=== PATIENT | male | born 1990 | race Two or more races ===

== ENCOUNTER 2022-04-03 10:28 | Emergency (ER) | payer SELFPAY ==
[2022-04-03 10:37] VITALS: BP 160/120; PULSE 100
--- NOTE | 2022-04-03 10:47 | ED.PSYCH ---
HPI - Psych General Chief Complaint: General Medical <DWAYNE Zuñiga - Last Filed: 04/03/22 18:03> Stated Complaint: ETOH <DWAYNE Zuñiga - Last Filed: 04/03/22 18:03> Time Seen by Provider: 04/03/22 10:43 <DWAYNE Zuñiga Last Filed: 04/03/22 18:03> Source: patient and EMS <DWAYNE Zuñiga - Last Filed: 04/03/22 18:03> Mode of arrival: EMS <DWAYNE Zuñiga - Last Filed: 04/03/22 18:03> Limitations: no limitations <DWAYNE Zuñiga Last Filed: 04/03/22 18:03> History of Present Illness HPI Narrative: 31-year-old male with a history of substance abuse and alcohol abuse presents to the ER for a retic an aunt behavior. Per EMS patient was found in police custody after he was running a radically throughout the streets in traffic. He was soaking wet. Patient admits to using crystal meth today and drinking a large amount of vodka. She denies any intent of self-harm. He states [place] and he was running around trying to dry his clothes off. He states he uses crystal meth and drinks alcohol every day. He denies any history of withdrawal. <DWAYNE Zuñiga - Last Filed: 04/03/22 18:03> MD complaint: substance abuse and alcohol abuse <DWAYNE Zuñiga - Last Filed: 04/03/22 18:03> Onset (ago): unknown <DWAYNE Zuñiga - Last Filed: 04/03/22 18:03> Duration: constant <DWAYNE Zuñiga Last Filed: 04/03/22 18:03> History of same: Yes <DWAYNE Zuñiga - Last Filed: 04/03/22 18:03> Relieving factors: none <DWAYNE Zuñiga Last Filed: 04/03/22 18:03> Exacerbating factors: none <DWAYNE Zuñiga Last Filed: 04/03/22 18:03> Context: recent alcohol abuse and recent drug abuse <DWAYNE Zuñiga - Last Filed: 04/03/22 18:03> Associated psychiatric symptoms: none <DWAYNE Zuñiga - Last Filed: 04/03/22 18:03> Associated symptoms: denies other symptoms <DWAYNE Zuñiga - Last Filed: 04/03/22 18:03> Treatments prior to arrival: none <DWAYNE Zuñiga - Last Filed: 04/03/22 18:03> Related Data Allergies/Adverse Reactions: Allergies Allergy/AdvReac Type Severity Reaction Status Date / Time Unable to Assess Allergy Unverified 04/03/22 10:44 <DWAYNE Zuñiga - Last Filed: 04/03/22 18:03> Review of Systems Review of Systems: Constitutional: No Fever, No Chills ENT/Mouth: No sore throat, No Rhinorrhea Cardiovascular: No Chest Pain, No SOB Respiratory: No Cough, No Sputum Gastrointestinal: No Nausea, No Vomiting, No Diarrhea, No abdominal Pain Genitourinary: No Dysuria, No Urinary Frequency, No Hematuria Musculoskeletal: No joint pain, No Myalgias Skin: + Skin Lesions (scrapes on RUE), No rash Neuro: No Weakness, No Numbness, No Dizziness, No Headache Psych: No Anxiety/Panic, No Depression, No SI, No HI, No AH, No VH Heme/Lymph: No Bruising, No Lymphadenopathy <DWAYNE Zuñiga - Last Filed: 04/03/22 18:03> Physical Exam Vital Signs: Vital Signs: Last Vital Signs Temp 98 F 04/03/22 10:50 Pulse 100 04/03/22 10:50 Resp 20 04/03/22 14:57 BP 124/66 04/03/22 10:50 Pulse Ox 98 04/03/22 10:50 BMI result Body Mass Index 26.5 <DWAYNE Zuñiga - Last Filed: 04/03/22 18:03> Vital Signs: Last Vital Signs Temp 98 F 04/03/22 10:50 Pulse 100 04/03/22 10:50 Resp 20 04/03/22 14:57 BP 124/66 04/03/22 10:50 Pulse Ox 98 04/03/22 10:50 BMI result Body Mass Index 26.5 <DWAYNE Moncada - Last Filed: 04/03/22 18:15> Appearance: Alert male sitting up on the stretcher, restless and itching his upper torso.. Oriented X3. Slightly lethargic, appears to be under the influence Eyes: Pupils equal, round and reactive to light. ENT: Pharynx normal. Neck: Normal inspection. Neck supple. CVS: Normal heart rate and rhythm. Pulses normal. Respiratory: No respiratory distress. Breath sounds normal. Abdomen: Soft and nontender. +BS x4 Skin: Skin warm and dry. Normal skin color. Normal skin turgor. superficial excoriations on the anterior chest wall Extremities: No lower extremity edema. Neuro/psych: Oriented X 3. Slightly slurred speech, conversant. moves all extremities. CN II-XII intact, nonfocal. abnormal though process. not suicidal. <DWAYNE Zuñiga - Last Filed: 04/03/22 18:03> Course Course Course Narrative: 31-year-old male comes in to the ER for evaluation of erratic behavior intoxication. He admits using crystal meth and alcohol today. He was running around in traffic. He denies any suicidal ideation or self-harm behaviors. He he is lethargic but able to converse. He appears to be under the influence He is asking for food and drinks. Will check basic lab workup, U tox, alcohol level. Will review assess once he is clinically sober. <DWAYNE Zuñiga - Last Filed: 04/03/22 18:03> Reevaluation(s) Reevaluation #1: Lab workup unremarkable. Alcohol level is negative. U tox is still pending. He is sleeping but easily arousable to voice. Does not maintain wakefulness. Needs more time to be more propria and rehab assess. Patient placed in physician observation started at 1:34 pm. <DWAYNE Zuñiga - Last Filed: 04/03/22 18:03> Reevaluation #2: - patient now awake, alert and oriented x3. Able to ambulate around the ER into the bathroom without any difficulties or assistive devices or any assistance. He just finished eating a sandwich, yogurt, cheese, drink some mateo lynda and we gave him dry clothes. He denies any SI/HI / auditory visualizations thoughts of self-injury. Reports that he is not interested in detox. Therefore at this time patient is clinically sober and can be discharged with instructions return if any new or worsening symptoms follow up with primary care provider. Patient understands agrees with this plan. <DWAYNE Moncada - Last Filed: 04/03/22 18:15> Time: 18:14 <DWAYNE Moncada - Last Filed: 04/03/22 18:15> MDM - Psych Lab Data Result diagrams: : 04/03/22 12:40 04/03/22 12:40 <DWAYNE Zuñiga - Last Filed: 04/03/22 18:03> Labs: Lab Results 04/03/22 04/03/22 Range/Units 12:40 12:40 WBC 9.3 (4.8-10.8) X10*3/uL RBC 4.80 (4.60-5.80) X10*6/uL Hgb 12.8 L (14.0-18.0) g/dl Hct 39.3 L (42.0-52.0) % MCV 81.9 (80.0-98.0) fL MCH 26.7 L (27.0-33.0) pg MCHC 32.6 (31.0-36.0) g/dl RDW 13.8 (11.0-16.0) % Plt Count 321 (160-400) X10*3/uL MPV 9.8 (9.4-12.4) fL Immature Gran % (Auto) 0.1 (0.0-0.4) % Neut % (Auto) 55.0 (45-73) % Lymph % (Auto) 31.9 (20-40) % [place] % (Auto) 9.2 (2-11) % Eos % (Auto) 3.0 (0-4) % Baso % (Auto) 0.8 (0-2) % Lymph # (Auto) 3.0 (1.2-4.9) X10*3/uL [place] # (Auto) 0.9 (0.1-1.2) X10*3/uL Eos # (Auto) 0.3 (0.0-0.4) X10*3/uL Baso # (Auto) 0.1 (0.0-0.2) X10*3/uL Abs Immat Gran (auto) 0.01 (0.00-0.03) X10*3/uL Absolute Neuts (auto) 5.1 (2.0-8.3) x10*3/uL Absolute Nucleated RBC 0.000 (0.0-0.012) X10*3/uL Nucleated RBC % (auto) 0.0 (0.0-0.2) /100WBC Sodium 140 (135-145) mmol/L Potassium 3.7 (3.3-5.1) mmol/L Chloride 105 (96-108) mmol/L Carbon Dioxide 29 (22-29) mmol/L Anion Gap 10 L (12-20) BUN 11 (9-16) mg/dL Creatinine 0.94 (0.5-1.4) mg/dL Estim Creat Clear Calc 119.7 Estimated GFR > 60 Random Glucose 91 (60-115) mg/dL Calcium 9.2 (8.4-10.2) mg/dL Magnesium 2.2 (1.6-2.6) mg/dL Total Bilirubin 0.5 (0.0-1.0) mg/dL Direct Bilirubin 0.2 (0.0-0.5) mg/dL AST 33 (5-37) U/L ALT 28 (0-40) U/L Alkaline Phosphatase 55 (39-117) U/L Total Protein 6.9 (6.5-8.0) g/dL Albumin 4.1 (3.5-5.0) g/dL Ethyl Alcohol < 10 mg/dL <DWAYNE Zuñiga - Last Filed: 04/03/22 18:03> Lab Results 04/03/22 04/03/22 Range/Units 12:40 12:40 WBC 9.3 (4.8-10.8) X10*3/uL RBC 4.80 (4.60-5.80) X10*6/uL Hgb 12.8 L (14.0-18.0) g/dl Hct 39.3 L (42.0-52.0) % MCV 81.9 (80.0-98.0) fL MCH 26.7 L (27.0-33.0) pg MCHC 32.6 (31.0-36.0) g/dl RDW 13.8 (11.0-16.0) % Plt Count 321 (160-400) X10*3/uL MPV 9.8 (9.4-12.4) fL Immature Gran % (Auto) 0.1 (0.0-0.4) % Neut % (Auto) 55.0 (45-73) % Lymph % (Auto) 31.9 (20-40) % [place] % (Auto) 9.2 (2-11) % Eos % (Auto) 3.0 (0-4) % Baso % (Auto) 0.8 (0-2) % Lymph # (Auto) 3.0 (1.2-4.9) X10*3/uL [place] # (Auto) 0.9 (0.1-1.2) X10*3/uL Eos # (Auto) 0.3 (0.0-0.4) X10*3/uL Baso # (Auto) 0.1 (0.0-0.2) X10*3/uL Abs Immat Gran (auto) 0.01 (0.00-0.03) X10*3/uL Absolute Neuts (auto) 5.1 (2.0-8.3) x10*3/uL Absolute Nucleated RBC 0.000 (0.0-0.012) X10*3/uL Nucleated RBC % (auto) 0.0 (0.0-0.2) /100WBC Sodium 140 (135-145) mmol/L Potassium 3.7 (3.3-5.1) mmol/L Chloride 105 (96-108) mmol/L Carbon Dioxide 29 (22-29) mmol/L Anion Gap 10 L (12-20) BUN 11 (9-16) mg/dL Creatinine 0.94 (0.5-1.4) mg/dL Estim Creat Clear Calc 119.7 Estimated GFR > 60 Random Glucose 91 (60-115) mg/dL Calcium 9.2 (8.4-10.2) mg/dL Magnesium 2.2 (1.6-2.6) mg/dL Total Bilirubin 0.5 (0.0-1.0) mg/dL Direct Bilirubin 0.2 (0.0-0.5) mg/dL AST 33 (5-37) U/L ALT 28 (0-40) U/L Alkaline Phosphatase 55 (39-117) U/L Total Protein 6.9 (6.5-8.0) g/dL Albumin 4.1 (3.5-5.0) g/dL Ethyl Alcohol < 10 mg/dL <DWAYNE Moncada - Last Filed: 04/03/22 18:15> Discharge Plan Discharge Clinical Impression: Methamphetamine use <DWAYNE Zuñiga - Last Filed: 04/03/22 18:03> Patient Disposition: Home, Self-Care <DWAYNE Zuñiga - Last Filed: 04/03/22 18:03> Instructions: Methamphetamine Abuse (ED) <DWAYNE Zuñiga - Last Filed: 04/03/22 18:03> Additional Instructions: Do not use illicit drugs; they can kill you <DWAYNE Zuñiga - Last Filed: 04/03/22 18:03>
[2022-04-03 10:50] VITALS: BP 124/66; PULSE 100; RESP 19; TEMP 36.6; O2SAT 98; BMI 26.5
[2022-04-03 12:43] LABS: MANUAL DIFF FLAG NO
[2022-04-03 12:44] LABS: Basophils Absolute Auto 0.1 X10*3/uL (0.0-0.2); Basophils Percent Auto 0.8 % (0-2); Eosinophils Absolute Auto 0.3 X10*3/uL (0.0-0.4); Hematocrit 39.3 % (42.0-52.0); Hemoglobin 12.8 g/dl (14.0-18.0); Imm Gran Abs Auto 0.01 X10*3/uL (0.00-0.03); Imm Gran Pct Auto 0.1 % (0.0-0.4); Lymphocytes Percent Auto 31.9 % (20-40); Mean Corpuscular HGB Conc 32.6 g/dl (31.0-36.0); Mean Corpuscular Hemoglobin 26.7 pg (27.0-33.0); Mean Corpuscular Volume 81.9 fL (80.0-98.0); Mean Platelet Volume 9.8 fL (9.4-12.4); Monocytes Absolute Auto 0.9 X10*3/uL (0.1-1.2); Monocytes Percent Auto 9.2 % (2-11); Neutrophils Absolute Auto 5.1 x10*3/uL (2.0-8.3); Platelet Count 321 X10*3/uL (160-400); Red Cell Distribution Width 13.8 % (11.0-16.0); White Blood Count 9.3 X10*3/uL (4.8-10.8)
[2022-04-03 13:03] LABS: Alanine Aminotransferase 28 U/L (0-40); Albumin Level 4.1 g/dL (3.5-5.0); Alkaline Phosphatase 55 U/L (39-117); Anion Gap 10 (12-20); Aspartate Amino Transferase 33 U/L (5-37); Bilirubin Direct 0.2 mg/dL (0.0-0.5); Bilirubin Total 0.5 mg/dL (0.0-1.0); Blood Urea Nitrogen 11 mg/dL (9-16); Calcium 9.2 mg/dL (8.4-10.2); Carbon Dioxide 29 mmol/L (22-29); Chloride 105 mmol/L (96-108); Creatinine Clr Calc Pharmacy 119.7; Estimated Glomerular Filt Rate > 60; Ethanol < 10 mg/dL; Glucose Random 91 mg/dL (60-115); Magnesium 2.2 mg/dL (1.6-2.6); Potassium 3.7 mmol/L (3.3-5.1); Sodium 140 mmol/L (135-145); Total Protein 6.9 g/dL (6.5-8.0)
[2022-04-03 14:57] VITALS: RESP 20
== END 2022-04-03 18:26 | disposition home or self-care (01) ==
LOC: HO.ED 18:20
PROVIDERS: Physician Assistant; Emergency Provider Emergency Medicine
DX: F11.90 Opioid use, unspecified, uncomplicated (principal); R53.83 Other fatigue; F10.10 Alcohol abuse, uncomplicated; Y90.0 Blood alcohol level of less than 20 mg/100 ml; F19.10 Other psychoactive substance abuse, uncomplicated
CPT/HCPCS: 36415; 80048; 80076; 82077; 83735; 85025; 99282; 99283